=== PATIENT | female | born 1930 | race American Indian/Alaskan Native ===

== ENCOUNTER 2018-09-09 10:12 | Inpatient (IN) | payer MEDICAID, MEDICARE ==
[2018-09-09 10:28] VITALS: BMI 28.3
--- NOTE | 2018-09-09 11:13 | C.PDOC ---
History Of Present Illness 88 years old female sent to ED by Dr. Bonilla for evaluation of right forehead abscess. Patient states "abscess has been there for 2 years bur 2 days ago it swelled up and looks infected." Denies fever, chills, or any complaints at this time. Time Seen by Provider: 09/09/18 11:01 Chief Complaint (Nursing): Abnormal Skin Integrity History Per: Patient History/Exam Limitations: no limitations Onset/Duration Of Symptoms: Hrs Current Symptoms Are (Timing): Still Present Location Of Injury: Anterior: Head (Forehead ) Recent travel outside of the [place]: No Past Medical History Reviewed: Historical Data, Nursing Documentation, Vital Signs Vital Signs: Last Vital Signs Temp 98.1 F 09/09/18 10:28 Pulse 78 09/09/18 10:28 Resp 18 09/09/18 10:28 BP 175/77 H 09/09/18 10:28 Pulse Ox 100 09/09/18 10:28 - Medical History PMH: No Chronic Diseases Family History: States: No Known Family Hx - Social History Hx Alcohol Use: No Hx Substance Use: No - Immunization History Hx Tetanus Toxoid Vaccination: No Hx Influenza Vaccination: No Hx Pneumococcal Vaccination: No Review Of Systems Except As Marked, All Systems Reviewed And Found Negative. Constitutional: Positive for: Other (Abscess on right forehead ) Physical Exam - Physical Exam Appears: Non-toxic, No Acute Distress Skin: Normal Color, Warm, Dry, No Rash, Other (2cm abscess to right forehead. No streaking or surrounding erythema.) Head: Atraumatic, Normacephalic Eye(s): bilateral: Normal Inspection, PERRL, EOMI Oral Mucosa: Moist Neck: Normal ROM, Supple Lymphatic: No Adenopathy ED Course And Treatment - Laboratory Results Result Diagrams: 09/12/18 07:21 09/12/18 07:21 O2 Sat by Pulse Oximetry: 100 (RA) Pulse Ox Interpretation: Normal Medical Decision Making Medical Decision Making: Dr. Bonilla evaluated patient in the ED and states pt needs admission for I&D. Ordered blood work. Spoke with Dr. Henry which accepted the patient under his service. Disposition - Disposition Disposition: HOSPITALIZED Disposition Time: 11:20 Condition: STABLE - POA Present On Arrival: None - Clinical Impression Clinical Impression: Skin lesion, Abscess - Scribe Statement The provider has reviewed the documentation as recorded by the Isaacibelia Marie All medical record entries made by the Isaacibelia were at my direction and personally dictated by me. I have reviewed the chart and agree that the record accurately reflects my personal performance of the history, physical exam, medical decision making, and the department course for this patient. I have also personally directed, reviewed, and agree with the discharge instructions and disposition.tip
[2018-09-09 11:25] LABS: ALB/GLOB RATIO 1.2 (1.0-2.1); ALBUMIN 4.8 g/dL (3.5-5.0); ALT/SGPT 26 U/L (9-52); AST/SGOT 38 U/L (14-36); BASO # 0.1 K/uL (0.0-0.2); BASO % 1.1 % (0.0-2.0); BLOOD UREA NITROGEN 16 mg/dL (7-17); EOS # 0.3 K/uL (0.0-0.7); EOS % 4.2 % (0.0-4.0); GFR NON-AFRICAN AMERICAN > 60; HEMOGLOBIN 13.6 g/dL (11.0-16.0); LYMPH # 2.1 K/uL (1.0-4.3); LYMPH % 26.6 % (20.0-40.0); MEAN CELL VOLUME 101.3 fL (81.0-99.0); MEAN CORPUSCULAR HEMOGLOBIN 34.7 pg (27.0-31.0); MEAN CORPUSCULAR HGB CONC 34.3 g/dL (33.0-37.0); MONO # 0.5 K/uL (0.0-0.8); MONO % 6.6 % (0.0-10.0); NEUT # 4.8 K/uL (1.8-7.0); NEUT % 61.5 % (50.0-75.0); NRBC % 0.1 % (0.0-2.0); RBC 3.92 Mil/uL (3.80-5.20); RED CELL DISTRIBUTION WIDTH 12.9 % (11.5-14.5); WHITE BLOOD COUNT 7.8 K/uL (4.8-10.8)
[2018-09-09] MEDS ORDERED: ceFAZolin 1 gm in NS 1 GM/100 ML BAG IVPB ONE (13:35)
[2018-09-09] MEDS ORDERED: Lidocaine Hydrochloride 0 ML INJ ONE (13:36)
[2018-09-09] MEDS ORDERED: Propofol 10 mg/ml Inj (20 ML) ONE (13:46)
[2018-09-09] MEDS ORDERED: Lactated Ringer's 1,000 ML IV SCH (14:30)
[2018-09-09] MEDS ORDERED: HYDROmorphone 0.5 mg/0.5 ml ISec IVP PRN (14:52)
[2018-09-09] MEDS ORDERED: Oxycodone/Acetaminophen 5/325 mg Tab PO PRN (14:56)
[2018-09-09] MEDS: Dextrose 5%/0.45% NS 1,000 ML IV SCH (20:58)
[2018-09-10] MEDS: Levothyroxine 75 MCG TAB PO SCH (05:40)
--- NOTE | 2018-09-10 06:48 | OP ---
PROCEDURE DATE: 09/09/2018 PREOPERATIVE DIAGNOSIS: Infected right temporal mass of face and scalp. POSTOPERATIVE DIAGNOSIS: Infected right temporal mass of face and scalp. PROCEDURE PERFORMED: Wide and deep excision (radical resection) of infected mass of right temporal face and scalp with drainage of underlying abscess, repair of temporal blood vessel and partial advancement flap closure. SURGEON: Torres Bonilla MD ANESTHESIA: General. ESTIMATED BLOOD LOSS: 30 mL. POSTOPERATIVE CONDITION: Stable. INDICATIONS FOR SURGERY: This is an 88-year-old female with a complex mass of the right temporal region, infected and containing pus who presents for wide and deep excision and possible radical resection. GROSS FINDINGS: There was a 5-cm infected mass of unknown origin for which a wide and deep excision (radical resection) was performed. It contained both pus and soft tissue matter and was sent as a specimen to rule out an infected malignancy. DESCRIPTION OF THE PROCEDURE: The patient was taken to the operating room. General anesthesia was administered. The right roman catholic and scalp region was prepped and draped, and hair was shaved from the region. A generous elliptical incision was made completely surrounding the mass. It was then excised deep into the fascial layer. Bleeding was controlled using the Bovie. A large amount of pus was drained and cultured during this maneuver, and it was mixed with a fair amount of blood. Once this had been cleaned up, a bleeding temporal blood vessel was identified, mobilized and repaired with a 7-0 Prolene. Blood flow was confirmed by Doppler. The wound was then irrigated with copious amounts of saline solution. A peripheral tissue flap and full-thickness tissue advancement flaps were raised at the periphery, and a total of 30 sq cm advancement flap closure was performed. Central portion of the wound was packed open with saline gauze. The patient tolerated the procedure well and returned to recovery room in stable condition. Dk Bonilla MD
[2018-09-10 08:21] LABS: BASO # 0.1 K/uL (0.0-0.2); BASO % 0.8 % (0.0-2.0); EOS # 0.4 K/uL (0.0-0.7); EOS % 6.7 % (0.0-4.0); HEMOGLOBIN 12.1 g/dL (11.0-16.0); LYMPH % 29.5 % (20.0-40.0); MEAN CELL VOLUME 101.3 fL (81.0-99.0); MEAN CORPUSCULAR HEMOGLOBIN 34.5 pg (27.0-31.0); MEAN CORPUSCULAR HGB CONC 34.1 g/dL (33.0-37.0); MEAN PLATELET VOLUME 9.5 fL (7.2-11.7); MONO # 0.5 K/uL (0.0-0.8); MONO % 7.4 % (0.0-10.0); NEUT # 3.7 K/uL (1.8-7.0); NEUT % 55.6 % (50.0-75.0); RBC 3.49 Mil/uL (3.80-5.20); RED CELL DISTRIBUTION WIDTH 13.2 % (11.5-14.5); WHITE BLOOD COUNT 6.6 K/uL (4.8-10.8)
[2018-09-10 08:27] LABS: BLOOD UREA NITROGEN 14 mg/dL (7-17); CALCIUM 9.1 mg/dl (8.6-10.4); GFR NON-AFRICAN AMERICAN > 60
--- NOTE | 2018-09-10 09:47 | CP.PCM.PN ---
Subjective - Date & Time of Evaluation Date of Evaluation: 09/10/18 Time of Evaluation: 11:03 - Subjective Subjective: Medicine Note for Dr. Henry Patient was seen and examined at bedside. Patient reports she is not currently in pain. ROS unremarkable. Patient is for OR today with Dr. Bonilla. Objective - Vital Signs/Intake and Output Vital Signs (last 24 hours): Temp Pulse Resp BP Pulse Ox 97.6 F 87 20 146/63 97 09/10/18 07:00 09/10/18 07:00 09/10/18 07:00 09/10/18 07:00 09/10/18 07:00 Intake and Output: 09/10/18 09/10/18 06:59 18:59 Intake Total 550 Balance 550 - Medications Medications: Current Medications Aspirin (Aspirin Chewable) 81 mg PO DAILY [facility] Docusate Sodium (Colace) 100 mg PO BID [facility] Last Admin: 09/09/18 18:00 Dose: 100 mg Enalapril Maleate (Vasotec) 2.5 mg PO DAILY [facility] Famotidine (Pepcid) 40 mg PO DAILY [facility] Folic Acid (Folic Acid) 1 mg PO DAILY [facility] Furosemide (Lasix) 40 mg PO DAILY [facility] Dextrose/Sodium Chloride (Dextrose 5%/0.45% Ns 1000 Ml) 1,000 mls @ 60 mls/hr IV .[id number] [facility] Last Admin: 09/09/18 20:58 Dose: 60 mls/hr Cefazolin Sodium 1,000 mg/ (Sodium Chloride) 100 mls @ 100 mls/hr IVPB Q8H [facility]; Protocol Last Admin: 09/10/18 05:40 Dose: 100 mls/hr Levothyroxine Sodium (Synthroid) 75 mcg PO DAILY@0630 [facility] Last Admin: 09/10/18 05:40 Dose: 75 mcg Metoprolol Tartrate (Lopressor) 25 mg PO BID [facility] Last Admin: 09/09/18 18:00 Dose: 25 mg Oxycodone/Acetaminophen (Percocet 5/325 Mg Tab) 1 tab PO Q4H PRN PRN Reason: pain Stop: 09/12/18 14:57 Rosuvastatin Calcium (Crestor) 10 mg PO HS [facility] Last Admin: 09/09/18 21:29 Dose: 10 mg Thiamine HCl (Vitamin B1 Tab) 100 mg PO BID [facility] - Labs Labs: 09/10/18 08:00 09/10/18 08:00 - Constitutional Appears: No Acute Distress - Head Exam Head Exam: ATRAUMATIC, NORMOCEPHALIC Additional comments: dressing is c/d/i no evidence of cellulitis noted - Eye Exam Eye Exam: EOMI, Normal appearance, PERRL Pupil Exam: NORMAL ACCOMODATION - ENT Exam ENT Exam: Mucous Membranes Moist - Respiratory Exam Respiratory Exam: Clear to Ausculation Bilateral, NORMAL BREATHING PATTERN - Cardiovascular Exam Cardiovascular Exam: +S1, +S2 - GI/Abdominal Exam GI & Abdominal Exam: Soft, Normal Bowel Sounds. absent: Distended, Tenderness - Extremities Exam Extremities Exam: Normal Inspection. absent: Pedal Edema, Tenderness - Neurological Exam Neurological Exam: Alert, Awake. absent: Oriented x3 - Psychiatric Exam Psychiatric exam: Normal Affect, Normal Mood - Skin Skin Exam: Dry, Intact, Normal Color, Warm Assessment and Plan - Assessment and Plan (Free Text) Plan: Right Frontal Mass Surgery Consulted - Dr. Bonilla - S/P resection and packing on 09/09, plan for OR 09/10 for closure - ID consulted Dr. Aguayo for abx reccs - Cefazolin Q8H - Pending wound cultures HTN - Resumed Vasotec, Lasix, and Lopressor CAD s/p CABG - Resumed ASA, Crestor 10mg PO QHS Hypothyroidism - Resumed Synthroid Prophylactic Measures - GI - pepcid, probiotics - DVT - c/i due to surgical procedure, SCDs - PT Eval - Case management for visiting nurse/ wound care Case discussed with Dr. Henry, Tasha Mac DO, PGY2
[2018-09-10] MEDS: Dextrose 5%/0.45% NS 1,000 ML IV SCH ×2 (10:37→15:02)
[2018-09-10] MEDS: Lactobacillus Acidophilus 500 MU Cap PO SCH ×3 (10:41→22:17)
--- NOTE | 2018-09-10 12:27 | CP.PCM.CON ---
History of Present Illness - History of Present Illness History of Present Illness: 88 years old female sent to ED by Dr. Bonilla for evaluation of right forehead abscess. For OR / debridement IV antibiotics ordered PMH reviewed meds reviewed Review of Systems - Review of Systems All systems: reviewed and no additional remarkable complaints except - Constitutional Constitutional: As Per HPI - EENT Eyes: absent: As Per HPI, Blind Spots, Blurred Vision, Change in Vision, Decreased Night Vision, Diplopia, Discharge, Dry Eye, Exophthalmos, Floaters, Irritation, Itchy Eyes, Loss of Peripheral Vision, Pain, Photophobia, Requires Corrective Lenses, Sees Flashes, Spots in Vision, Tunnel Vision, Other Visual Disturbances, Loss of Vision, Other Ears: absent: As Per HPI, Decreased Hearing, Ear Discharge, Ear Pain, Tinnitus, Abnormal Hearing, Disequilibrium, Dizziness, Other Nose/Mouth/Throat: absent: As Per HPI, Epistaxis, Nasal Congestion, Nasal Discharge, Nasal Obstruction, Nasal Trauma, Nose Pain, Post Nasal Drip, Sinus Pain, Sinus Pressure, Bleeding Gums, Change in Voice, Dental Pain, Dry Mouth, Dysphagia, Halitosis, Hoarsness, Lip Swelling, Mouth Lesions, Mouth Pain, Odynophagia, Sore Throat, Throat Swelling, Tongue Swelling, Facial Pain, Neck Pain, Neck Mass, Other - Breasts Breasts: absent: As Per HPI, Change in Shape, Mass, Pain, Nipple Discharge, Nipple Inversion, Skin Changes, Swelling, Other - Cardiovascular Cardiovascular: absent: As Per HPI, Acrocyanosis, Chest Pain, Chest Pain at Rest, Chest Pain with Activity, Claudication, Diaphoresis, Dyspnea, Dyspnea on Exertion, Edema, Irregular Heart Rhythm, Pain Radiating to Arm/Neck/Jaw, Leg Edema, Leg Ulcers, Lightheadedness, Orthopnea, Palpitations, Paroxysmal [place] Dyspnea, Pedal Edema, Radiating Pain, Rapid Heart Rate, Slow Heart Rate, Syncope, Other - Respiratory Respiratory: absent: As Per HPI, Cough, Dyspnea, Hemoptysis, Dyspnea on Exertion, Wheezing, Snoring, Stridor, Pain on Inspiration, Chest Congestion, Excessive Mucous Production, Change in Mucous Color, Pain with Coughing, Other - Gastrointestinal Gastrointestinal: absent: As Per HPI, Abdominal Pain, Belching, Bloating, Change in Bowel Habits, Change in Stool Character, Coffee Ground Emesis, Constipation, Cramping, Diarrhea, Dyspepsia, Dysphagia, Early Satiety, Excessive Flatus, Fecal Incontinence, Heartburn, Hematemesis, Hematochezia, Loose Stools, Melena, Nausea, Odynophagia, Temesmus, Vomiting, Other - Genitourinary Genitourinary: absent: As Per HPI, Change in Urinary Stream, Difficulty Urinating, Dysuria, Flank Pain, Hematuria, Pyuria, Nocturia, Urinary Incontinenc e, Urinary Frequency, Urinary Hesitance, Urinary Urgency, Voiding Freq/Small Amts, Freq UTI, Hx Renal/Bladder Calculi, Hx /Renal Surgery, Bladder Distension, Other - Reproductive: Female Reproductive:Female: absent: As Per HPI, Amenorrhea, Amenorrhea/ Control, Currently Menstual, Cycle <21 Days, Cycle >35 Days, Cycle Variable, Menses 1-7 Days, Menses >/= 8 Days, Menses Variable, Cycle > 4 Weeks Between, No Menses for 6 Months, Heavy Menses, Light Menses, Normal Menses, Spotting Between Cycles, S/P Hysterectomy, Menopausal, Post Menopausal, Premenarche, Abnormal Vaginal Bleeding, Dysmenorrhea, Dyspareunia, Genital Lesions, Genital Pruritis, Pelvic Pain, Prolapse Symptoms, Sexual Dysfunction, Vaginal Discharge, Vaginal Dryness, Vaginal Odor, Vaginal Pruritis, Other - Menstruation Menstruation: absent: As Per HPI, Amenorrhea, Amenorrhea/ Control, Currently Menstual, Cycle <21 Days, Cycle >35 Days, Cycle Variable, Menses 1-7 Days, Menses >/= 8 Days, Menses Variable, Cycle > 4 Weeks Between, No Menses for 6 Months, Heavy Menses, Light Menses, Normal Menses, Spotting Between Cycles, S/P Hysterectomy, Menopausal, Post Menopausal, Premenarche, Abnormal Vaginal Bleeding, Dysmenorrhea, Other - Musculoskeletal Musculoskeletal: absent: As Per HPI, Abnormal Gait, Arthralgias, Atrophy, Back Pain, Deformity, Joint Swelling, Limited Range of Motion, Loss of Height, Muscle Cramps, Muscle Weakness, Myalgias, Neck Pain, Numbness, Radiating Pain into Limb, Stiffness, Tingling, Other - Integumentary Integumentary: As Per HPI, Skin Pain, Wounds - Neurological Neurological: absent: As Per HPI, Abnormal Gait, Abnormal Hearing, Abnormal Movements, Abnormal Speech, Behavioral Changes, Burning Sensations, Confusion, Convulsions, Disequilibrium, Dizziness, Numbness, Focal Weakness, Frequent Falls, Headaches, Lack of Coordination, Loss of Vision, Memory Loss, Paresthesias, Radicular Pain, Restless Legs, Sensory Deficit, Syncope, Tingling, Tremor, Vertigo, Weakness, Other Visual Disturbances, Other - Psychiatric Psychiatric: absent: As Per HPI, Abnormal Sleep Pattern, Anhedonia, Anxiety, Auditory Hallucinations, Behavioral Changes, Change in Appetite, Change in Libido, Confusion, Depression, Difficulty Concentrating, Hallucinations, Homicidal Ideation, Hopelessness, Irritability, Memory Loss, Mood Swings, Panic Attacks, Paranoia, Suicidal Ideation, Visual Hallucinations, Tactile Hallucinations, Other - Endocrine Endocrine: absent: As Per HPI, Change in Body Appearance, Change in Libido, Cold Intolorance, Deepening of Voice, Excessive Sweating, Fatigue, Flushing, Heat Intolorance, Increase in Ring/Shoe/Hat Size, Palpitations, Polydipsia, Polyphagia, Polyuria, Other - Hematologic/Lymphatic Hematologic: absent: As Per HPI, Easy Bleeding, Easy Bruising, Lymphadenopathy, Other Past Patient History - Past Medical History & Family History Past Medical History?: Yes - Past Social History Smoking Status: Never Smoked - CARDIAC Hx Cardiac Disorders: Yes - PULMONARY Hx Respiratory Disorders: No - NEUROLOGICAL Hx Neurological Disorder: No - HEENT Hx HEENT Problems: No - RENAL Hx Chronic Kidney Disease: No - ENDOCRINE/METABOLIC Hx Endocrine Disorders: No - HEMATOLOGICAL/ONCOLOGICAL Hx Blood Disorders: No - INTEGUMENTARY Hx Dermatological Problems: No - MUSCULOSKELETAL/RHEUMATOLOGICAL Hx Musculoskeletal Disorders: Yes Hx Falls: No Hx Gout: Yes - GASTROINTESTINAL Hx Gastrointestinal Disorders: No - GENITOURINARY/GYNECOLOGICAL Hx Genitourinary Disorders: No - PSYCHIATRIC Hx Psychophysiologic Disorder: No Hx Substance Use: No - SURGICAL HISTORY Hx Surgeries: Yes Other/Comment: quadruple heart surgery - ANESTHESIA Hx Anesthesia: Yes Hx Anesthesia Reactions: No Hx Malignant Hyperthermia: No Meds Allergies/Adverse Reactions: Allergies Allergy/AdvReac Type Severity Reaction Status Date / Time No Known Allergies Allergy Verified 09/09/18 10:26 - Medications Medications: Current Medications Acetaminophen (Tylenol 325mg Tab) 650 mg PO Q6 PRN PRN Reason: Pain, Mild (1-3) Aspirin (Aspirin Chewable) 81 mg PO DAILY [facility] Last Admin: 09/10/18 10:36 Dose: 81 mg Docusate Sodium (Colace) 100 mg PO BID [facility] Last Admin: 09/10/18 10:36 Dose: 100 mg Enalapril Maleate (Vasotec) 2.5 mg PO DAILY [facility] Last Admin: 09/10/18 10:36 Dose: 2.5 mg Famotidine (Pepcid) 40 mg PO DAILY [facility] Last Admin: 09/10/18 10:37 Dose: 40 mg Folic Acid (Folic Acid) 1 mg PO DAILY [facility] Last Admin: 09/10/18 10:36 Dose: 1 mg Furosemide (Lasix) 40 mg PO DAILY [facility] Last Admin: 09/10/18 10:37 Dose: 40 mg Dextrose/Sodium Chloride (Dextrose 5%/0.45% Ns 1000 Ml) 1,000 mls @ 60 mls/hr IV .[id number] [facility] Last Admin: 09/10/18 10:37 Dose: Not Given Cefazolin Sodium 1,000 mg/ (Sodium Chloride) 100 mls @ 100 mls/hr IVPB Q8H [facility]; Protocol Last Admin: 09/10/18 05:40 Dose: 100 mls/hr Lactobacillus Acidophilus (Bacid Acidophilus) 1 cap PO BID [facility] Last Admin: 09/10/18 11:01 Dose: 1 cap Levothyroxine Sodium (Synthroid) 75 mcg PO DAILY@0630 [facility] Last Admin: 09/10/18 05:40 Dose: 75 mcg Metoprolol Tartrate (Lopressor) 25 mg PO BID [facility] Last Admin: 09/10/18 10:37 Dose: 25 mg Oxycodone/Acetaminophen (Percocet 5/325 Mg Tab) 1 tab PO Q4H PRN PRN Reason: pain Stop: 09/12/18 14:57 Rosuvastatin Calcium (Crestor) 10 mg PO HS [facility] Last Admin: 09/09/18 21:29 Dose: 10 mg Thiamine HCl (Vitamin B1 Tab) 100 mg PO BID [facility] Last Admin: 09/10/18 10:37 Dose: 100 mg Physical Exam - Constitutional Appears: Non-toxic, Chronically Ill - Head Exam Head Exam: ATRAUMATIC, NORMAL INSPECTION, NORMOCEPHALIC - Eye Exam Eye Exam: EOMI, PERRL. absent: Scleral icterus - ENT Exam ENT Exam: Mucous Membranes Dry, Normal External Ear Exam - Neck Exam Neck exam: Negative for: Lymphadenopathy - Respiratory Exam Respiratory Exam: Decreased Breath Sounds, Clear to Auscultation Bilateral - Cardiovascular Exam Cardiovascular Exam: REGULAR RHYTHM, +S1, +S2 - GI/Abdominal Exam GI & Abdominal Exam: Diminished Bowel Sounds, Soft. absent: Tenderness - Rectal Exam Rectal Exam: Deferred - Exam Exam: NORMAL INSPECTION - Extremities Exam Extremities exam: Positive for: pedal pulses present. Negative for: calf tenderness, pedal edema, tenderness - Back Exam Back exam: absent: CVA tenderness (L), CVA tenderness (R), paraspinal tenderness - Neurological Exam Neurological exam: Alert, CN II-XII Intact, Oriented x3, Reflexes Normal - Psychiatric Exam Psychiatric exam: Normal Mood - Skin Skin Exam: Dry Additional comments: swelling / erythema forehead wound packed Results - Vital Signs Recent Vital Signs: Last Vital Signs Temp 97.6 F 09/10/18 07:00 Pulse 87 09/10/18 07:00 Resp 20 09/10/18 07:00 BP 141/78 09/10/18 10:37 Pulse Ox 97 09/10/18 07:00 - Labs Result Diagrams: 09/10/18 08:00 09/10/18 08:00 Labs: Laboratory Results - last 24 hr 09/10/18 09/10/18 08:00 08:00 WBC 6.6 RBC 3.49 L Hgb 12.1 Hct 35.4 MCV 101.3 H MCH 34.5 H MCHC 34.1 RDW 13.2 Plt Count 265 MPV 9.5 Neut % (Auto) 55.6 Lymph % (Auto) 29.5 [place] % (Auto) 7.4 Eos % (Auto) 6.7 H Baso % (Auto) 0.8 Neut # (Auto) 3.7 Lymph # (Auto) 2.0 [place] # (Auto) 0.5 Eos # (Auto) 0.4 Baso # (Auto) 0.1 Sodium 138 Potassium 4.0 Chloride 104 Carbon Dioxide 25 Anion Gap 13 BUN 14 Creatinine 0.8 Est GFR ( Amer) > 60 Est GFR (Non-Af Amer) > 60 Random Glucose 110 H Calcium 9.1 Assessment & Plan - Assessment and Plan (Free Text) Assessment: s/p I and D abscess forehead await surgical report cont empiric IV rx to discuss with Dr Henry
[2018-09-10] MEDS ORDERED: Bupivacaine 0.25% 20 ML INJ IJ ONE (17:02)
[2018-09-10] MEDS ORDERED: Lidocaine Hydrochloride 5 ML INJ ONE (17:11)
[2018-09-10] MEDS ORDERED: Propofol 10 mg/ml Inj (20 ML) ONE (17:11)
[2018-09-10] MEDS ORDERED: Lidocaine Hydrochloride 20 ML INJ ONE (17:15)
[2018-09-11] MEDS: Levothyroxine 75 MCG TAB PO SCH (06:06)
[2018-09-11 07:34] LABS: ALB/GLOB RATIO 1.2 (1.0-2.1); ALBUMIN 4.4 g/dL (3.5-5.0); ALT/SGPT 21 U/L (9-52); AST/SGOT 35 U/L (14-36); BLOOD UREA NITROGEN 11 mg/dL (7-17); CALCIUM 9.7 mg/dl (8.6-10.4); GFR NON-AFRICAN AMERICAN > 60
[2018-09-11 07:43] LABS: BASO % 0.7 % (0.0-2.0); EOS # 0.4 K/uL (0.0-0.7); EOS % 5.7 % (0.0-4.0); HEMOGLOBIN 12.8 g/dL (11.0-16.0); LYMPH # 2.8 K/uL (1.0-4.3); LYMPH % 41.1 % (20.0-40.0); MEAN CELL VOLUME 100.8 fL (81.0-99.0); MEAN CORPUSCULAR HEMOGLOBIN 34.8 pg (27.0-31.0); MEAN CORPUSCULAR HGB CONC 34.5 g/dL (33.0-37.0); MEAN PLATELET VOLUME 9.3 fL (7.2-11.7); MONO # 0.6 K/uL (0.0-0.8); MONO % 8.3 % (0.0-10.0); NEUT # 3.1 K/uL (1.8-7.0); NEUT % 44.2 % (50.0-75.0); NRBC % 0.1 % (0.0-2.0); RBC 3.68 Mil/uL (3.80-5.20); RED CELL DISTRIBUTION WIDTH 13.2 % (11.5-14.5); WHITE BLOOD COUNT 6.9 K/uL (4.8-10.8)
--- NOTE | 2018-09-11 07:46 | OP ---
PROCEDURE DATE: 09/10/2018 PREOPERATIVE DIAGNOSIS: Right temporal open wound and abscess. POSTOPERATIVE DIAGNOSIS: Right temporal open wound and abscess. PROCEDURE PERFORMED: Re-drainage of right temporal abscess with debridement and partial tissue flap closure of open wound with repair of temporal artery. SURGEON: Dk Bonilla MD ANESTHESIA: Local with mild sedation. ESTIMATED BLOOD LOSS: 10 mL. POSTOPERATIVE CONDITION: Stable. INDICATIONS FOR SURGERY: This is an 88-year-old female taken back to the OR in a staged procedure status post removal of an infected cyst and a large right temporal abscess yesterday. She presents back to the OR for OR change of packing, cleansing of wound, and possible closure. DESCRIPTION OF THE PROCEDURE: The patient was taken to the operating room. Light IV sedation was administered. The forehead area was prepped and draped after the previous packing was removed. A 1% lidocaine local was administered. The wound was then aggressively debrided. All remaining pieces of the previous cyst and cyst cavity were removed. Underlying bleeding was controlled using the Bovie. Once again, a branch of the temporal artery was bleeding vigorously and was repaired using 7-0 Prolene after being adequately mobilized. Blood flow was confirmed by Doppler. Generous full-thickness tissue flaps were raised at the periphery of the wound, counter incisions were made and full-thickness advancement flap closures were made totaling 14 cm2. The central portion of the wound was packed open with saline gauze. The patient tolerated the procedure well and returned to recovery room in stable condition. Dk Bonilla MD
--- NOTE | 2018-09-11 07:52 | CP.PCM.PN ---
Subjective - Date & Time of Evaluation Date of Evaluation: 09/11/18 Time of Evaluation: 07:52 - Subjective Subjective: Medicine Progress Note - Dr Henry's Service Patient seen and examined at bedside. Per nursing, patient is confused. Currently oriented to only self. She believes that she is at home. Patient is NPO for the OR today. Offers no acute complaints at this time. Objective - Vital Signs/Intake and Output Vital Signs (last 24 hours): Temp Pulse Resp BP Pulse Ox 98.1 F 73 20 127/69 98 09/10/18 23:30 09/10/18 23:30 09/10/18 23:30 09/10/18 23:30 09/10/18 23:30 - Medications Medications: Current Medications Acetaminophen (Tylenol 325mg Tab) 650 mg PO Q6 PRN PRN Reason: Pain, Mild (1-3) Aspirin (Aspirin Chewable) 81 mg PO DAILY [facility] Last Admin: 09/10/18 10:36 Dose: 81 mg Docusate Sodium (Colace) 100 mg PO BID [facility] Last Admin: 09/10/18 19:49 Dose: 100 mg Enalapril Maleate (Vasotec) 2.5 mg PO DAILY [facility] Last Admin: 09/10/18 10:36 Dose: 2.5 mg Famotidine (Pepcid) 40 mg PO DAILY [facility] Last Admin: 09/10/18 10:37 Dose: 40 mg Folic Acid (Folic Acid) 1 mg PO DAILY [facility] Last Admin: 09/10/18 10:36 Dose: 1 mg Furosemide (Lasix) 40 mg PO DAILY [facility] Last Admin: 09/10/18 10:37 Dose: 40 mg Dextrose/Sodium Chloride (Dextrose 5%/0.45% Ns 1000 Ml) 1,000 mls @ 60 mls/hr IV .[id number] [facility] Last Admin: 09/10/18 15:02 Dose: 60 mls/hr Cefazolin Sodium 1,000 mg/ (Sodium Chloride) 100 mls @ 100 mls/hr IVPB Q8H [facility]; Protocol Last Admin: 09/10/18 22:16 Dose: 100 mls/hr Lactobacillus Acidophilus (Bacid Acidophilus) 1 cap PO BID [facility] Last Admin: 09/10/18 22:17 Dose: 1 cap Levothyroxine Sodium (Synthroid) 75 mcg PO DAILY@0630 [facility] Last Admin: 09/11/18 06:06 Dose: 75 mcg Metoprolol Tartrate (Lopressor) 25 mg PO BID [facility] Last Admin: 09/10/18 19:50 Dose: 25 mg Oxycodone/Acetaminophen (Percocet 5/325 Mg Tab) 1 tab PO Q4H PRN PRN Reason: pain Stop: 09/12/18 14:57 Rosuvastatin Calcium (Crestor) 10 mg PO HS [facility] Last Admin: 09/10/18 22:18 Dose: 10 mg Thiamine HCl (Vitamin B1 Tab) 100 mg PO BID [facility] Last Admin: 09/10/18 19:53 Dose: 100 mg - Labs Labs: 09/11/18 07:09 09/11/18 07:09 - Constitutional Appears: Non-toxic, No Acute Distress - Head Exam Head Exam: NORMAL INSPECTION, NORMOCEPHALIC Additional comments: Dressing c/d/i - Eye Exam Eye Exam: EOMI, Normal appearance - ENT Exam ENT Exam: Mucous Membranes Moist - Neck Exam Neck Exam: Full ROM - Respiratory Exam Respiratory Exam: Clear to Ausculation Bilateral, NORMAL BREATHING PATTERN. absent: Rales, Rhonchi, Wheezes - Cardiovascular Exam Cardiovascular Exam: REGULAR RHYTHM, +S1, +S2 - GI/Abdominal Exam GI & Abdominal Exam: Soft, Normal Bowel Sounds. absent: Guarding, Rigid, Tenderness - Extremities Exam Extremities Exam: Full ROM - Neurological Exam Neurological Exam: Alert, Awake. absent: Oriented x3 - Psychiatric Exam Psychiatric exam: Normal Affect, Normal Mood - Skin Skin Exam: Dry, Normal Color, Warm Assessment and Plan - Assessment and Plan (Free Text) Assessment: Right Frontal Mass - S/P resection and packing on 09/09, plan for OR 09/10 for closure - Patient NPO for OR today - Antibiotics: Cefazolin 1gm Q8H IVPB - Wound culture 09/09 showing gram positive cocci - Wound culture 09/10 showing no growth - ID consulted Dr. Aguayo for abx reccs - Surgery Consulted - Dr. Bonilla Altered Mental Status, Hx of dementia? -attempted to call patients daughter to discuss patients baseline HTN - Resumed Vasotec, Lasix, and Lopressor CAD s/p CABG - Resumed ASA, Crestor 10mg PO QHS Hypothyroidism - Resumed Synthroid Prophylactic Measures - GI - pepcid 40mg PO daily, probiotics - DVT - c/i due to surgical procedure, SCDs - PT Evaluation ordered - Case management for visiting nurse/ wound care Case discussed with Dr. Carl Santiago DO PGY-2
[2018-09-11] MEDS: Lactobacillus Acidophilus 500 MU Cap PO SCH ×2 (10:00→17:55)
[2018-09-11] MEDS ORDERED: Lidocaine Hydrochloride 0 ML INJ ONE (11:55)
[2018-09-11] MEDS ORDERED: ceFAZolin 1 gm in NS 0 GM/0 ML BAG IVPB ONE (11:59)
[2018-09-11] MEDS ORDERED: Lidocaine Hydrochloride 10 ML INJ ONE (13:16)
--- NOTE | 2018-09-11 13:30 | RAD ---
Date of service: 09/11/2018 HISTORY: preop COMPARISON: No prior study available comparison.. TECHNIQUE: Chest PA and lateral FINDINGS: LUNGS: Poor inspiration with low lung volumes, crowded bronchovascular markings and mild bibasilar atelectasis. Questionable mild blunting left CP angle; findings could be positional however small effusion or mild chronic pleural thickening not excluded... PLEURA: No significant pleural effusion identified. No pneumothorax apparent. CARDIOVASCULAR: Mild aortic atherosclerotic calcification present. Heart size within range of normal size. Aorta slightly ectatic and uncoiled with mild to moderate calcified atherosclerotic plaque. Sternotomy wires and CABG clips again noted. No pulmonary vascular congestion. OSSEOUS STRUCTURES: No significant abnormalities. VISUALIZED UPPER ABDOMEN: Normal. OTHER FINDINGS: None. IMPRESSION: Poor inspiration with low lung volumes, crowded bronchovascular markings and mild bibasilar atelectasis. Questionable mild blunting left CP angle; findings could be positional however small effusion or mild chronic pleural thickening not excluded...
[2018-09-11] MEDS ORDERED: Propofol 10 mg/ml Inj (20 ML) ONE (13:31)
[2018-09-11] MEDS ORDERED: ceFAZolin 1 gm FROZEN Premix 2 GM/100 ML ML IVPB ONE (13:32)
[2018-09-11] MEDS ORDERED: Bupivacaine 0.25% 20 ML INJ IJ ONE (13:35)
[2018-09-11] MEDS ORDERED: Morphine 4 MG/ML VIAL IVP PRN (14:18)
[2018-09-11] MEDS ORDERED: Lactated Ringer's 1,000 ML IV SCH (14:30)
[2018-09-11 16:38] VITALS: RESP 20
[2018-09-11] MEDS: Dextrose 5%/0.45% NS 1,000 ML IV SCH (17:00)
--- NOTE | 2018-09-11 17:52 | CP.PCM.PN ---
Subjective - Date & Time of Evaluation Date of Evaluation: 09/11/18 Time of Evaluation: 08:00 - Subjective Subjective: events noted IV rx renewed for OR dr Bonilla Objective - Vital Signs/Intake and Output Vital Signs (last 24 hours): Temp Pulse Resp BP Pulse Ox 98.3 F 100 H 20 158/78 H 96 09/11/18 16:35 09/11/18 16:35 09/11/18 16:35 09/11/18 16:35 09/11/18 16:35 Intake and Output: 09/11/18 09/11/18 06:59 18:59 Intake Total 300 Balance 300 - Medications Medications: Current Medications Acetaminophen (Tylenol 325mg Tab) 650 mg PO Q6 PRN PRN Reason: Pain, Mild (1-3) Aspirin (Aspirin Chewable) 81 mg PO DAILY [facility] Last Admin: 09/11/18 10:00 Dose: Not Given Docusate Sodium (Colace) 100 mg PO BID [facility] Last Admin: 09/11/18 10:00 Dose: Not Given Enalapril Maleate (Vasotec) 2.5 mg PO DAILY [facility] Last Admin: 09/11/18 10:00 Dose: Not Given Famotidine (Pepcid) 40 mg PO DAILY [facility] Last Admin: 09/11/18 10:00 Dose: Not Given Folic Acid (Folic Acid) 1 mg PO DAILY [facility] Last Admin: 09/11/18 10:00 Dose: Not Given Furosemide (Lasix) 40 mg PO DAILY [facility] Last Admin: 09/11/18 10:00 Dose: Not Given Dextrose/Sodium Chloride (Dextrose 5%/0.45% Ns 1000 Ml) 1,000 mls @ 60 mls/hr IV .[id number] [facility] Last Admin: 09/10/18 15:02 Dose: 60 mls/hr Cefazolin Sodium 1,000 mg/ (Sodium Chloride) 100 mls @ 100 mls/hr IVPB Q8H [facility]; Protocol Last Admin: 09/11/18 13:25 Dose: 100 mls Lactobacillus Acidophilus (Bacid Acidophilus) 1 cap PO BID [facility] Last Admin: 09/11/18 10:00 Dose: Not Given Levothyroxine Sodium (Synthroid) 75 mcg PO DAILY@0630 [facility] Last Admin: 09/11/18 06:06 Dose: 75 mcg Metoprolol Tartrate (Lopressor) 25 mg PO BID [facility] Last Admin: 09/11/18 10:00 Dose: Not Given Oxycodone/Acetaminophen (Percocet 5/325 Mg Tab) 1 tab PO Q4H PRN PRN Reason: pain Stop: 09/12/18 14:57 Rosuvastatin Calcium (Crestor) 10 mg PO HS [facility] Last Admin: 09/10/18 22:18 Dose: 10 mg Thiamine HCl (Vitamin B1 Tab) 100 mg PO BID [facility] Last Admin: 09/11/18 10:00 Dose: Not Given - Labs Labs: 09/11/18 07:09 09/11/18 07:09 - Constitutional Appears: Confused - Head Exam Head Exam: NORMOCEPHALIC - Eye Exam Eye Exam: absent: Scleral icterus - ENT Exam ENT Exam: Mucous Membranes Dry - Neck Exam Neck Exam: Normal Inspection - Respiratory Exam Respiratory Exam: Decreased Breath Sounds - Cardiovascular Exam Cardiovascular Exam: REGULAR RHYTHM - GI/Abdominal Exam GI & Abdominal Exam: Distended, Soft - Rectal Exam Rectal Exam: Deferred - Exam Exam: NORMAL INSPECTION - Extremities Exam Extremities Exam: absent: Pedal Edema - Back Exam Back Exam: absent: CVA tenderness (L), CVA tenderness (R) - Neurological Exam Neurological Exam: Altered - Psychiatric Exam Psychiatric exam: Depressed - Skin Skin Exam: Dry Assessment and Plan - Assessment and Plan (Free Text) Assessment: wound culture pending cont IV antibiotics and wound care
[2018-09-12] MEDS: Levothyroxine 75 MCG TAB PO SCH (05:38)
--- NOTE | 2018-09-12 07:27 | CP.PCM.PN ---
Subjective - Date & Time of Evaluation Date of Evaluation: 09/12/18 Time of Evaluation: 07:23 - Subjective Subjective: Medicine Progress Note - Dr Henry's service Patient seen and examined at bedside. Per nursing no acute events overnight. Patient stating that she wants to go home. Ambulating with physical therapy. Offers no other complaints at this time. Objective - Vital Signs/Intake and Output Vital Signs (last 24 hours): Temp Pulse Resp BP Pulse Ox 95 F L 97 H 20 134/78 95 09/11/18 23:30 09/11/18 23:30 09/11/18 23:30 09/11/18 23:30 09/11/18 23:30 - Medications Medications: Current Medications Acetaminophen (Tylenol 325mg Tab) 650 mg PO Q6 PRN PRN Reason: Pain, Mild (1-3) Last Admin: 09/11/18 19:00 Dose: 650 mg Aspirin (Aspirin Chewable) 81 mg PO DAILY [facility] Last Admin: 09/11/18 10:00 Dose: Not Given Docusate Sodium (Colace) 100 mg PO BID [facility] Last Admin: 09/11/18 17:56 Dose: 100 mg Enalapril Maleate (Vasotec) 2.5 mg PO DAILY [facility] Last Admin: 09/11/18 10:00 Dose: Not Given Famotidine (Pepcid) 40 mg PO DAILY [facility] Last Admin: 09/11/18 10:00 Dose: Not Given Folic Acid (Folic Acid) 1 mg PO DAILY [facility] Last Admin: 09/11/18 10:00 Dose: Not Given Furosemide (Lasix) 40 mg PO DAILY [facility] Last Admin: 09/11/18 10:00 Dose: Not Given Dextrose/Sodium Chloride (Dextrose 5%/0.45% Ns 1000 Ml) 1,000 mls @ 60 mls/hr IV .[id number] [facility] Last Admin: 09/11/18 17:00 Dose: Not Given Cefazolin Sodium 1,000 mg/ (Sodium Chloride) 100 mls @ 100 mls/hr IVPB Q8H [facility]; Protocol Last Admin: 09/12/18 05:40 Dose: 100 mls/hr Lactobacillus Acidophilus (Bacid Acidophilus) 1 cap PO BID [facility] Last Admin: 09/11/18 17:55 Dose: 1 cap Levothyroxine Sodium (Synthroid) 75 mcg PO DAILY@0630 [facility] Last Admin: 09/12/18 05:38 Dose: 75 mcg Metoprolol Tartrate (Lopressor) 25 mg PO BID [facility] Last Admin: 09/11/18 17:59 Dose: 25 mg Oxycodone/Acetaminophen (Percocet 5/325 Mg Tab) 1 tab PO Q4H PRN PRN Reason: pain Stop: 09/12/18 14:57 Rosuvastatin Calcium (Crestor) 10 mg PO HS [facility] Last Admin: 09/11/18 21:54 Dose: 10 mg Thiamine HCl (Vitamin B1 Tab) 100 mg PO BID [facility] Last Admin: 09/11/18 18:00 Dose: 100 mg - Labs Labs: 09/11/18 07:09 09/11/18 07:09 - Constitutional Appears: Non-toxic, No Acute Distress - Head Exam Head Exam: NORMAL INSPECTION, NORMOCEPHALIC Additional comments: +forehead dressing clean/dry/intact - Eye Exam Eye Exam: EOMI, Normal appearance - ENT Exam ENT Exam: Mucous Membranes Moist - Respiratory Exam Respiratory Exam: Clear to Ausculation Bilateral, NORMAL BREATHING PATTERN. absent: Rales, Rhonchi, Wheezes - Cardiovascular Exam Cardiovascular Exam: REGULAR RHYTHM, +S1, +S2 - GI/Abdominal Exam GI & Abdominal Exam: Soft. absent: Guarding, Rigid, Tenderness - Extremities Exam Extremities Exam: absent: Calf Tenderness - Neurological Exam Neurological Exam: Alert, Awake - Psychiatric Exam Psychiatric exam: Normal Affect, Normal Mood - Skin Skin Exam: Dry, Normal Color, Warm Assessment and Plan - Assessment and Plan (Free Text) Assessment: Right Frontal Mass - S/P resection and packing on 09/09, 09/10 for redrainage of abscess, 09/11 for closure of wound - Ambulating and tolerating diet - Antibiotics: Cefazolin 1gm Q8H IVPB - Wound culture 09/09 showing coagulase negative staph (light growth) - Wound culture 09/10 showing no growth - Pathology: ruptured epidermal inclusion cyst - Discussed case with Dr Arellano, Will discharge home off antibiotics - ID consulted Dr. Aguayo for abx reccs - Surgery Consulted - Dr. Bonilla Altered Mental Status, Hx of dementia? -AMS likely side effect of anesthesia -Patient's daughter reports that she is back at baseline -Will Monitor HTN - Resumed Vasotec, Lasix, and Lopressor CAD s/p CABG - Resumed ASA, Crestor 10mg PO QHS Hypothyroidism - Resumed Synthroid Prophylactic Measures - GI - pepcid 40mg PO daily - DVT - SCDs - PT Evaluation ordered; recommending rolling walker and home with services - Case management for visiting nurse/ wound care DISPO: Patient is medically stable for discharge home. Prescription for rolling walker written. Patient to be referred to visiting nurse services for evaluation of mcc. Case discussed with Dr. Carl Santiago DO PGY-2
[2018-09-12 08:03] LABS: BASO # 0.1 K/uL (0.0-0.2); BASO % 0.7 % (0.0-2.0); EOS # 0.3 K/uL (0.0-0.7); EOS % 3.2 % (0.0-4.0); HEMOGLOBIN 12.6 g/dL (11.0-16.0); LYMPH # 2.8 K/uL (1.0-4.3); LYMPH % 34.8 % (20.0-40.0); MEAN CELL VOLUME 100.8 fL (81.0-99.0); MEAN CORPUSCULAR HEMOGLOBIN 34.9 pg (27.0-31.0); MEAN CORPUSCULAR HGB CONC 34.6 g/dL (33.0-37.0); MEAN PLATELET VOLUME 9.3 fL (7.2-11.7); MONO # 0.6 K/uL (0.0-0.8); MONO % 7.8 % (0.0-10.0); NEUT # 4.3 K/uL (1.8-7.0); NEUT % 53.5 % (50.0-75.0); RBC 3.62 Mil/uL (3.80-5.20); RED CELL DISTRIBUTION WIDTH 13.1 % (11.5-14.5)
[2018-09-12 08:33] LABS: ALB/GLOB RATIO 1.2 (1.0-2.1); ALBUMIN 4.3 g/dL (3.5-5.0); ALT/SGPT 24 U/L (9-52); AST/SGOT 37 U/L (14-36); BLOOD UREA NITROGEN 11 mg/dL (7-17); CALCIUM 9.7 mg/dl (8.6-10.4); GFR NON-AFRICAN AMERICAN > 60
[2018-09-12 08:44] VITALS: PULSE 93; TEMP 98.1
[2018-09-12] MEDS: Lactobacillus Acidophilus 500 MU Cap PO SCH (10:49)
[2018-09-12] MEDS: Dextrose 5%/0.45% NS 1,000 ML IV SCH (10:54)
[2018-09-12 10:58] VITALS: BP 180/92
[2018-09-15 11:48] VITALS: O2SAT 100
--- NOTE | 2018-09-20 09:49 | DS ---
The patient admitted to the hospital with chief complaint of large abscess of the forehead. The patient underwent surgery. The patient is still somewhat confused. We kept monitoring. The patient improved. The patient will be discharged and followed up as outpatient. Charlie Henry MD
--- NOTE | 2018-09-26 13:20 | OP ---
PROCEDURE DATE: 09/11/2018 PREOPERATIVE DIAGNOSIS: Open wound of forehead, status post excision of infected cyst. POSTOPERATIVE DIAGNOSIS: Open wound of forehead, status post excision of infected cyst. PROCEDURE PERFORMED: Debridement and delayed closure of left church wound. SURGEON: Dk Bonilla MD ANESTHESIA: General. ESTIMATED BLOOD LOSS: 30 mL. POSTOPERATIVE CONDITION: Stable. INDICATIONS FOR SURGERY: This is a staged procedure for an 88-year-old female who presented with a large infected mass of the left church region. She underwent a wide and deep excision and the wound was left partially open due to the pus and infection within the wound. For cosmesis, she is now taken back to the operating room for debridement and closure. DESCRIPTION OF PROCEDURE: The patient was taken to the operating room. General anesthesia was administered. The packing was removed. The area was prepped and draped. Local anesthesia was infiltrated. The wound was again aggressively debrided. The branch of temporal artery was once again prepared and blood flow was confirmed by Doppler. The wound was then pulse irrigated with saline and Kantrex solution and a full-thickness tissue flap was raised, counterincisions were made and a 32 cm2 advancement flap closure was performed using heavy Monocryl and subcuticular Monocryl. The wound was dressed sterilely with the bacitracin. The patient tolerated the procedure well and returned to recovery room in stable condition. Dk Bonilla MD [facility] # [id number]
== END 2018-09-12 15:25 | disposition home or self-care (01) | DRG 577 ==
LOC: C.6T 10:12 → C.ER 10:12 → C.SDS 11:43 → C.9E 14:51 → C.9S 15:20 → C.6T 18:44
PROVIDERS: ADMIT Internal Medicine Pulmonary Disease; ATTEND Internal Medicine Pulmonary Disease
PROC: 0JB10ZZ Excision of Face Subcutaneous Tissue and Fascia, Open Approach (ICD-10-PCS; 2018-09-09)
PROC: 03Q Upper Arteries, Repair (ICD-10-PCS; 2018-09-09)
PROC: 0J910ZX Drainage of Face Subcutaneous Tissue and Fascia, Open Approach, Diagnostic (ICD-10-PCS; 2018-09-09)
PROC: 0HX1XZZ Transfer Face Skin, External Approach (ICD-10-PCS; principal; 2018-09-09 13:45)
PROC: 0JB10ZZ Excision of Face Subcutaneous Tissue and Fascia, Open Approach (ICD-10-PCS; 2018-09-10)
PROC: 03Q Upper Arteries, Repair (ICD-10-PCS; 2018-09-10)
PROC: 0HX1XZZ Transfer Face Skin, External Approach (ICD-10-PCS; 2018-09-10)
PROC: 0J910ZX Drainage of Face Subcutaneous Tissue and Fascia, Open Approach, Diagnostic (ICD-10-PCS; 2018-09-10)
PROC: 0HD1XZZ Extraction of Face Skin, External Approach (ICD-10-PCS; 2018-09-10)
PROC: 0HX1XZZ Transfer Face Skin, External Approach (ICD-10-PCS; 2018-09-11)
DX: L72.0 Epidermal cyst (principal); I97.52 Accidental puncture and laceration of a circulatory system organ or structure during other procedure; L02.01 Cutaneous abscess of face; R41.82 Altered mental status, unspecified; T88.59XA Other complications of anesthesia, initial encounter; Y83.8 Other surgical procedures as the cause of abnormal reaction of the patient, or of later complication, without mention of misadventure at the time of the procedure; I10 Essential (primary) hypertension; I25.10 Atherosclerotic heart disease of native coronary artery without angina pectoris; Z95.1 Presence of aortocoronary bypass graft; E03.9 Hypothyroidism, unspecified; F32.9 Major depressive disorder, single episode, unspecified